=== PATIENT | female | born 1940 | race Caucasian/White ===

== ENCOUNTER 2021-06-05 21:22 | Inpatient (IN) ==
[2021-06-06] MEDS ORDERED: Naloxone 0.4 MG/ML INJ IVP PRN (01:07)
[2021-06-06] MEDS ORDERED: Ondansetron 4 MG/2 ML VIAL IVP PRN (01:07)
[2021-06-06] MEDS ORDERED: 0.9 % Sodium Chloride 1,000 ML IVC SCH (01:15)
[2021-06-06] MEDS ORDERED: cefTRIAXone 1,000 MG in 0.9 % Sodium Chloride Mini Bag 100 ML IVPB SCH (03:00)
[2021-06-06 03:21] LABS: Basophils % 0.1 %; Eosinophils % 0.1 %; Hematocrit 37.3 % (35.3-44.9); Hemoglobin 10.8 g/dL (11.5-15.4); Immature Granulocytes % 0.5 % (0-4); Lymphocytes # 0.8 K/mcL (0.6-4.6); Lymphocytes % 3.5 %; Mean Corpuscular Hemoglobin 26.3 pg (28.0-33.3); Mean Platelet Volume 9.7 fL (9.4-12.4); Monocytes # 1.3 K/mcL (0.0-1.3); Monocytes % 5.8 %; Neutrophils # 19.5 K/mcL (1.6-8.9); Platelet Count 383 K/mcL (140-400); Red Cell Distribution Width 14.4 % (11.5-14.5); White Blood Count 21.7 K/mcL (4.3-11.1)
[2021-06-06 03:37] LABS: Alanine Aminotransferase 126 Units/L (7-52); Albumin 3.7 g/dL (3.5-5.7); Albumin/Globulin Ratio 1.6 (1.1-2.2); Alkaline Phosphatase 125 Units/L (34-104); Aspartate Amino Transferase 176 Units/L (13-39); BUN/Creatinine Ratio 17 (6-26); Bilirubin,Total 3.2 mg/dL (0.3-1.0); Blood Urea Nitrogen 9 mg/dL (8-23); Calcium 8.7 mg/dL (8.6-10.3); Carbon Dioxide 34 mEq/L (23-29); Chloride 100 mEq/L (98-107); Globulin 2.3 g/dL (2.4-3.5); Glucose 110 mg/dL (70-105); Osmolality,Calculated 287 (280-300); Potassium 4.1 mEq/L (3.5-5.1); Sodium 139 mEq/L (136-145); eGFR For African Americans > 60 (> 60); eGFR For Non-African Americans > 60 (> 60)
[2021-06-06] MEDS: Ipratropium/Albuterol Neb 3 ML IH SCH ×7 (03:47→20:21)
[2021-06-06] MEDS ORDERED: Furosemide 20 MG TABLET PO PRN (04:34)
[2021-06-06] MEDS: *HR* LORazepam 0.5 MG TABLET PO PRN (04:49)
[2021-06-06] MEDS: Gabapentin 100 MG CAPSULE PO SCH ×2 (04:49→19:45)
[2021-06-06] MEDS: MethylPREDNISolone 40 MG/ML VIAL IVP SCH ×4 (04:49→21:30)
[2021-06-06] MEDS: *HR* Heparin 5,000 UNIT/ML VIAL SQ SCH ×3 (04:49→19:45)
[2021-06-06] MEDS ORDERED: *HR* Metformin 500 MG TABLET PO SCH (08:00)
[2021-06-06] MEDS: MetroNIDAZOLE 500 MG/100 ML 500 MG/100 ML BAG IVPB SCH ×3 (09:54→23:21)
[2021-06-06] MEDS: carvediloL 6.25 MG TABLET PO SCH ×2 (09:55→18:21)
[2021-06-06] MEDS: tiZANidine 4 MG TABLET PO SCH ×2 (09:55→19:45)
[2021-06-06 13:42] LABS: Bilirubin,Urine Small (Negative); Blood,Urine Large (Negative); Clarity,Urine Turbid (Clear); Color,Urine Dark-Yellow (Yellow); Glucose,Urine (UA) Normal (Normal); Ketones,Urine 40 mg/dL (Negative); Leukocyte Esterase,Urine Trace (Negative); Nitrite,Urine Negative (Negative); Protein,Urine 70 mg/dL (Neg-Trace); Specific Gravity,Urine > 1.030 (1.010-1.025)
[2021-06-06 13:44] LABS: RBC,Urine TNTC per hpf (0-3); Transitional Epi Cells,Urine Few per hpf (None-Few)
[2021-06-06] MEDS ORDERED: *HR* LORazepam 2 MG/ML VIAL IVP ONE (17:00)
[2021-06-06] MEDS: Famotidine 20 MG TABLET PO SCH (19:45)
[2021-06-06] MEDS: Budesonide/Formoterol 160/4.5 1 PUFF INH IH SCH (20:17)
[2021-06-07] MEDS: Ipratropium/Albuterol Neb 3 ML IH SCH ×7 (00:09→23:32)
[2021-06-07] MEDS: MethylPREDNISolone 40 MG/ML VIAL IVP SCH ×3 (03:05→17:51)
[2021-06-07] MEDS: *HR* Heparin 5,000 UNIT/ML VIAL SQ SCH ×3 (06:08→20:49)
[2021-06-07] MEDS: Budesonide/Formoterol 160/4.5 1 PUFF INH IH SCH ×2 (08:15→19:52)
[2021-06-07] MEDS ORDERED: CefTRIAXone 1,000 MG VIAL ONE (08:47)
[2021-06-07] MEDS ORDERED: cefTRIAXone 2,000 MG in 0.9 % Sodium Chloride 10 ML IVP SCH (09:00)
[2021-06-07] MEDS: MetroNIDAZOLE 500 MG/100 ML 500 MG/100 ML BAG IVPB SCH ×2 (09:09→16:56)
[2021-06-07] MEDS: tiZANidine 4 MG TABLET PO SCH ×2 (09:12→20:48)
[2021-06-07] MEDS: carvediloL 6.25 MG TABLET PO SCH ×2 (09:12→16:55)
[2021-06-07] MEDS: Gabapentin 100 MG CAPSULE PO SCH ×2 (09:12→20:52)
[2021-06-07 14:00] LABS: Basophils % 0.1 %; Hematocrit 31.7 % (35.3-44.9); Hemoglobin 9.5 g/dL (11.5-15.4); Immature Granulocytes % 1.1 % (0-4); Lymphocytes # 0.7 K/mcL (0.6-4.6); Lymphocytes % 3.8 %; Mean Corpuscular Volume 90.1 fL (83.0-100.0); Mean Platelet Volume 9.9 fL (9.4-12.4); Monocytes # 0.4 K/mcL (0.0-1.3); Monocytes % 2.3 %; Neutrophils # 16.2 K/mcL (1.6-8.9); Platelet Count 361 K/mcL (140-400); Red Blood Count 3.52 M/mcL (3.82-4.97); Red Cell Distribution Width 14.2 % (11.5-14.5); Segmented Neutrophils % 92.7 %; White Blood Count 17.5 K/mcL (4.3-11.1)
[2021-06-07 14:14] LABS: Alanine Aminotransferase 73 Units/L (7-52); Albumin 3.1 g/dL (3.5-5.7); Albumin/Globulin Ratio 1.2 (1.1-2.2); Alkaline Phosphatase 97 Units/L (34-104); Aspartate Amino Transferase 52 Units/L (13-39); BUN/Creatinine Ratio 33 (6-26); Bilirubin,Total 0.6 mg/dL (0.3-1.0); Blood Urea Nitrogen 18 mg/dL (8-23); Calcium 8.4 mg/dL (8.6-10.3); Carbon Dioxide 30 mEq/L (23-29); Chloride 99 mEq/L (98-107); Globulin 2.5 g/dL (2.4-3.5); Glucose 175 mg/dL (70-105); Osmolality,Calculated 284 (280-300); Potassium 4.3 mEq/L (3.5-5.1); Sodium 134 mEq/L (136-145); Total Protein 5.6 g/dL (6.4-8.9); eGFR For African Americans > 60 (> 60); eGFR For Non-African Americans > 60 (> 60)
[2021-06-07] MEDS ORDERED: *HR* Propofol 200 MG/20 ML VIAL IVP ONE (14:57)
[2021-06-07] MEDS ORDERED: *HR* FentaNYL (PF) 100 MCG/2 ML VIAL ONE (14:57)
[2021-06-07] MEDS ORDERED: Lidocaine -MPF 2% 5 ML VIAL ONE (14:59)
[2021-06-07] MEDS ORDERED: Ondansetron 4 MG/2 ML VIAL IVP PRN (15:01)
[2021-06-07] MEDS ORDERED: Ondansetron 4 MG/2 ML VIAL ONE (15:02)
[2021-06-07] MEDS ORDERED: *HR* Succinylcholine 200 MG/10 ML VIAL IVP ONE (15:02)
[2021-06-07] MEDS ORDERED: Lidocaine -MPF 4% 5 ML AMPUL ONE (15:05)
[2021-06-07] MEDS ORDERED: Albuterol 2.5 MG/3 ML NEBULIZER ONE (15:38)
[2021-06-07] MEDS ORDERED: EPHEDrine 50 MG/ML VIAL ONE (15:48)
[2021-06-07] MEDS: Famotidine 20 MG TABLET PO SCH (20:50)
[2021-06-08] MEDS: MetroNIDAZOLE 500 MG/100 ML 500 MG/100 ML BAG IVPB SCH ×3 (00:20→16:39)
[2021-06-08] MEDS: Ipratropium/Albuterol Neb 3 ML IH SCH ×6 (04:27→23:54)
[2021-06-08] MEDS: MethylPREDNISolone 40 MG/ML VIAL IVP SCH ×2 (05:25→16:35)
[2021-06-08] MEDS: *HR* Heparin 5,000 UNIT/ML VIAL SQ SCH ×3 (05:25→21:50)
[2021-06-08] MEDS: Budesonide/Formoterol 160/4.5 1 PUFF INH IH SCH ×2 (07:46→19:54)
[2021-06-08] MEDS: Gabapentin 100 MG CAPSULE PO SCH ×2 (08:49→21:51)
[2021-06-08] MEDS: tiZANidine 4 MG TABLET PO SCH ×2 (08:49→21:49)
[2021-06-08] MEDS: carvediloL 6.25 MG TABLET PO SCH ×2 (08:50→16:38)
[2021-06-08] MEDS ORDERED: Furosemide 40 MG/4 ML VIAL IVP SCH (09:00)
[2021-06-08] MEDS: cefTRIAXone 2,000 MG in 0.9 % Sodium Chloride 10 ML IVP SCH (09:29)
[2021-06-08] MEDS ORDERED: Perflutren Lipid Microsphere 1.3 ML in 0.9 % Sodium Chloride 8.7 ML IVP PRN (11:36)
[2021-06-08 12:39] LABS: Basophils % 0.1 %; Hematocrit 32.1 % (35.3-44.9); Hemoglobin 9.9 g/dL (11.5-15.4); Immature Granulocytes % 1.1 % (0-4); Lymphocytes # 0.4 K/mcL (0.6-4.6); Lymphocytes % 2.8 %; Mean Corpuscular HGB Conc 30.8 g/dL (31.6-35.5); Mean Corpuscular Hemoglobin 27.6 pg (28.0-33.3); Mean Corpuscular Volume 89.4 fL (83.0-100.0); Mean Platelet Volume 10.1 fL (9.4-12.4); Monocytes # 0.4 K/mcL (0.0-1.3); Monocytes % 2.7 %; Neutrophils # 13.8 K/mcL (1.6-8.9); Platelet Count 374 K/mcL (140-400); Red Blood Count 3.59 M/mcL (3.82-4.97); Segmented Neutrophils % 93.3 %; White Blood Count 14.8 K/mcL (4.3-11.1)
[2021-06-08 12:55] LABS: Alanine Aminotransferase 59 Units/L (7-52); Albumin 3.4 g/dL (3.5-5.7); Albumin/Globulin Ratio 1.5 (1.1-2.2); Alkaline Phosphatase 92 Units/L (34-104); Aspartate Amino Transferase 30 Units/L (13-39); BUN/Creatinine Ratio 32 (6-26); Bilirubin,Total 0.5 mg/dL (0.3-1.0); Blood Urea Nitrogen 21 mg/dL (8-23); Calcium 8.2 mg/dL (8.6-10.3); Carbon Dioxide 32 mEq/L (23-29); Chloride 98 mEq/L (98-107); Globulin 2.2 g/dL (2.4-3.5); Glucose 164 mg/dL (70-105); Osmolality,Calculated 289 (280-300); Potassium 3.8 mEq/L (3.5-5.1); Sodium 136 mEq/L (136-145); Total Protein 5.6 g/dL (6.4-8.9); eGFR For African Americans > 60 (> 60); eGFR For Non-African Americans > 60 (> 60)
[2021-06-08] MEDS: *HR* LORazepam 0.5 MG TABLET PO PRN (15:51)
[2021-06-08] MEDS: Famotidine 20 MG TABLET PO SCH (21:48)
[2021-06-09] MEDS: MetroNIDAZOLE 500 MG/100 ML 500 MG/100 ML BAG IVPB SCH ×3 (01:36→17:20)
[2021-06-09] MEDS: MethylPREDNISolone 40 MG/ML VIAL IVP SCH ×2 (02:27→17:19)
[2021-06-09 03:00] LABS: Basophils % 0.1 %; Hematocrit 31.2 % (35.3-44.9); Hemoglobin 9.8 g/dL (11.5-15.4); Immature Granulocytes % 1.2 % (0-4); Lymphocytes # 0.4 K/mcL (0.6-4.6); Lymphocytes % 3.4 %; Mean Corpuscular HGB Conc 31.4 g/dL (31.6-35.5); Mean Corpuscular Hemoglobin 27.8 pg (28.0-33.3); Mean Corpuscular Volume 88.6 fL (83.0-100.0); Mean Platelet Volume 9.8 fL (9.4-12.4); Monocytes # 0.3 K/mcL (0.0-1.3); Monocytes % 2.8 %; Neutrophils # 11.1 K/mcL (1.6-8.9); Platelet Count 373 K/mcL (140-400); Red Blood Count 3.52 M/mcL (3.82-4.97); Red Cell Distribution Width 14.1 % (11.5-14.5); Segmented Neutrophils % 92.5 %
[2021-06-09 03:18] LABS: Alanine Aminotransferase 50 Units/L (7-52); Albumin 3.2 g/dL (3.5-5.7); Albumin/Globulin Ratio 1.4 (1.1-2.2); Alkaline Phosphatase 83 Units/L (34-104); Aspartate Amino Transferase 26 Units/L (13-39); BUN/Creatinine Ratio 42 (6-26); Bilirubin,Total 0.5 mg/dL (0.3-1.0); Blood Urea Nitrogen 25 mg/dL (8-23); Calcium 8.3 mg/dL (8.6-10.3); Carbon Dioxide 30 mEq/L (23-29); Chloride 99 mEq/L (98-107); Globulin 2.3 g/dL (2.4-3.5); Glucose 173 mg/dL (70-105); Osmolality,Calculated 287 (280-300); Potassium 4.1 mEq/L (3.5-5.1); Sodium 134 mEq/L (136-145); Total Protein 5.5 g/dL (6.4-8.9); eGFR For African Americans > 60 (> 60); eGFR For Non-African Americans > 60 (> 60)
[2021-06-09] MEDS: Ipratropium/Albuterol Neb 3 ML IH SCH ×5 (04:05→20:41)
[2021-06-09] MEDS: *HR* Heparin 5,000 UNIT/ML VIAL SQ SCH ×3 (05:20→20:23)
[2021-06-09] MEDS: Budesonide/Formoterol 160/4.5 1 PUFF INH IH SCH ×2 (08:03→20:41)
[2021-06-09] MEDS: *HR* HYDROcodone/Acet 5/325 mg TABLET PO PRN ×2 (08:25→15:39)
[2021-06-09] MEDS: carvediloL 6.25 MG TABLET PO SCH ×2 (08:26→17:20)
[2021-06-09] MEDS: Gabapentin 100 MG CAPSULE PO SCH ×2 (08:26→20:21)
[2021-06-09] MEDS: tiZANidine 4 MG TABLET PO SCH ×2 (08:26→20:21)
[2021-06-09] MEDS: cefTRIAXone 2,000 MG in 0.9 % Sodium Chloride 10 ML IVP SCH (09:30)
[2021-06-09] MEDS: lisinopriL 5 MG TABLET PO SCH (10:14)
[2021-06-09] MEDS: *HR* LORazepam 0.5 MG TABLET PO PRN (17:22)
[2021-06-09] MEDS ORDERED: *HR* LORazepam 2 MG/ML VIAL IVP ONE (20:07)
[2021-06-09] MEDS ORDERED: Acetaminophen IV 500 MG/50 ML BAG IVPB ONE (20:07)
[2021-06-09] MEDS: Famotidine 20 MG TABLET PO SCH (20:23)
[2021-06-10] MEDS: Ipratropium/Albuterol Neb 3 ML IH SCH ×7 (00:04→23:45)
[2021-06-10] MEDS: MetroNIDAZOLE 500 MG/100 ML 500 MG/100 ML BAG IVPB SCH ×3 (00:09→16:53)
[2021-06-10] MEDS: *HR* HYDROcodone/Acet 5/325 mg TABLET PO PRN ×2 (04:34→13:08)
[2021-06-10] MEDS: *HR* Heparin 5,000 UNIT/ML VIAL SQ SCH ×3 (06:02→20:04)
[2021-06-10] MEDS: *HR* LORazepam 0.5 MG TABLET PO PRN ×3 (06:02→19:59)
[2021-06-10 06:30] LABS: Basophils % 0.3 %; Hematocrit 34.6 % (35.3-44.9); Hemoglobin 10.6 g/dL (11.5-15.4); Immature Granulocytes % 1.8 % (0-4); Lymphocytes # 0.5 K/mcL (0.6-4.6); Lymphocytes % 4.4 %; Mean Corpuscular HGB Conc 30.6 g/dL (31.6-35.5); Mean Platelet Volume 9.9 fL (9.4-12.4); Monocytes # 0.4 K/mcL (0.0-1.3); Neutrophils # 9.2 K/mcL (1.6-8.9); Platelet Count 377 K/mcL (140-400); Red Blood Count 3.93 M/mcL (3.82-4.97); Segmented Neutrophils % 89.5 %; White Blood Count 10.3 K/mcL (4.3-11.1)
[2021-06-10] MEDS: MethylPREDNISolone 40 MG/ML VIAL IVP SCH ×2 (07:19→16:53)
[2021-06-10] MEDS: Budesonide/Formoterol 160/4.5 1 PUFF INH IH SCH ×2 (08:03→19:34)
[2021-06-10] MEDS: cefTRIAXone 2,000 MG in 0.9 % Sodium Chloride 10 ML IVP SCH (08:26)
[2021-06-10] MEDS: carvediloL 6.25 MG TABLET PO SCH ×2 (08:27→16:52)
[2021-06-10] MEDS: Gabapentin 100 MG CAPSULE PO SCH ×2 (08:27→20:04)
[2021-06-10] MEDS: Furosemide 40 MG TABLET PO SCH (08:28)
[2021-06-10] MEDS: tiZANidine 4 MG TABLET PO SCH ×2 (08:28→19:59)
[2021-06-10] MEDS: lisinopriL 5 MG TABLET PO SCH (08:28)
[2021-06-10 08:51] LABS: Alanine Aminotransferase 48 Units/L (7-52); Albumin 3.4 g/dL (3.5-5.7); Albumin/Globulin Ratio 1.5 (1.1-2.2); Alkaline Phosphatase 79 Units/L (34-104); Aspartate Amino Transferase 38 Units/L (13-39); BUN/Creatinine Ratio 43 (6-26); Bilirubin,Total 0.5 mg/dL (0.3-1.0); Blood Urea Nitrogen 25 mg/dL (8-23); Calcium 8.2 mg/dL (8.6-10.3); Carbon Dioxide 28 mEq/L (23-29); Chloride 99 mEq/L (98-107); Globulin 2.3 g/dL (2.4-3.5); Glucose 144 mg/dL (70-105); Osmolality,Calculated 287 (280-300); Potassium 4.4 mEq/L (3.5-5.1); Sodium 135 mEq/L (136-145); Total Protein 5.7 g/dL (6.4-8.9); eGFR For African Americans > 60 (> 60); eGFR For Non-African Americans > 60 (> 60)
[2021-06-10] MEDS ORDERED: Furosemide 40 MG TABLET PO ONE (09:34)
[2021-06-10] MEDS: Famotidine 20 MG TABLET PO SCH ×2 (20:00→20:01)
[2021-06-11] MEDS: MetroNIDAZOLE 500 MG/100 ML 500 MG/100 ML BAG IVPB SCH ×2 (01:20→09:32)
[2021-06-11] MEDS: *HR* LORazepam 0.5 MG TABLET PO PRN ×3 (02:18→16:03)
[2021-06-11] MEDS: Ipratropium/Albuterol Neb 3 ML IH SCH ×6 (03:26→23:34)
[2021-06-11] MEDS: *HR* HYDROcodone/Acet 5/325 mg TABLET PO PRN ×2 (06:24→17:01)
[2021-06-11] MEDS: *HR* Heparin 5,000 UNIT/ML VIAL SQ SCH ×3 (06:24→22:31)
[2021-06-11] MEDS: MethylPREDNISolone 40 MG/ML VIAL IVP SCH (06:37)
[2021-06-11] MEDS: Budesonide/Formoterol 160/4.5 1 PUFF INH IH SCH ×2 (07:45→20:03)
[2021-06-11] MEDS: cefTRIAXone 2,000 MG in 0.9 % Sodium Chloride 10 ML IVP SCH (09:29)
[2021-06-11] MEDS: lisinopriL 5 MG TABLET PO SCH (09:30)
[2021-06-11] MEDS: Gabapentin 100 MG CAPSULE PO SCH ×2 (09:30→22:19)
[2021-06-11] MEDS: Furosemide 40 MG TABLET PO SCH (09:30)
[2021-06-11] MEDS: carvediloL 6.25 MG TABLET PO SCH ×2 (09:31→17:00)
[2021-06-11] MEDS: tiZANidine 4 MG TABLET PO SCH ×2 (09:31→22:19)
[2021-06-11 12:06] LABS: Influenza A PCR Negative (Negative); Influenza B PCR Negative (Negative); Resp. Syncytial Virus PCR Negative (Negative)
[2021-06-11 12:14] LABS: SARS-CoV-2 by PCR (In House) Negative (Negative)
[2021-06-11] MEDS: Famotidine 20 MG TABLET PO SCH (22:20)
[2021-06-12] MEDS: Ipratropium/Albuterol Neb 3 ML IH SCH ×5 (03:57→20:12)
[2021-06-12] MEDS: *HR* HYDROcodone/Acet 5/325 mg TABLET PO PRN ×2 (04:14→13:21)
[2021-06-12] MEDS: *HR* Heparin 5,000 UNIT/ML VIAL SQ SCH ×2 (06:17→13:21)
[2021-06-12] MEDS: *HR* LORazepam 0.5 MG TABLET PO PRN ×2 (06:24→19:38)
[2021-06-12] MEDS: Budesonide/Formoterol 160/4.5 1 PUFF INH IH SCH ×2 (07:44→20:12)
[2021-06-12] MEDS ORDERED: predniSONE 20 MG TABLET PO SCH (09:00)
[2021-06-12] MEDS ORDERED: Furosemide 40 MG/4 ML VIAL IVP SCH (09:00)
[2021-06-12] MEDS: Gabapentin 100 MG CAPSULE PO SCH (09:07)
[2021-06-12] MEDS: Furosemide 40 MG TABLET PO SCH (09:09)
[2021-06-12] MEDS: lisinopriL 5 MG TABLET PO SCH (09:09)
[2021-06-12] MEDS: carvediloL 6.25 MG TABLET PO SCH ×2 (09:10→16:35)
[2021-06-12] MEDS: tiZANidine 4 MG TABLET PO SCH (09:10)
[2021-06-12 15:27] VITALS: BP 162/69; PULSE 71; TEMP 98
[2021-06-12 16:50] VITALS: O2SAT 98
== END 2021-06-12 20:35 | disposition other institution (70) | DRG 871 ==
LOC: 3ANU → OBSVTOIN 06-06 00:37
PROVIDERS: ADMIT Internal Medicine; ATTEND Internal Medicine